=== PATIENT | male | born 1995 | race Caucasian/White ===

== ENCOUNTER 2023-12-18 12:01 | Inpatient (IN) ==
[2023-12-18] MEDS: LIDOCAINE 5% 1 PATCH TD STA (12:56)
[2023-12-18] MEDS: KETOROLAC TROMETHAMINE 60 MG/2 ML VIAL IM STA (12:56)
[2023-12-18] MEDS: CYCLOBENZAPRINE HCL 10 MG TAB PO STA (12:57)
--- NOTE | 2023-12-18 13:32 | XRay Report ---
XR lumbar spine 2-3V CLINICAL HISTORY: back pain, twisting injury COMPARISON STUDY: No previous studies for comparison. FINDINGS: There is straightening of the lumbar lordosis. Vertebral body heights are maintained. There are no lumbar spine fractures. Disc spaces are preserved. Facet joints are intact. IMPRESSION: 1. No lumbar spine fractures. 2. Straightening of the lumbar lordosis. Otherwise, unremarkable lumbar spine radiographs. ACT 112: Negative or not required by law. Electronically signed by: Scottie Mayen M.D. 12/18/2023 1:30 PM
--- NOTE | 2023-12-18 13:34 | XRay Report ---
XR thoracic spine 3V routine HISTORY: 28 years-old Male back pain, twisting injury acute mid back pain status post lifting injury COMPARISON: Lumbar spine radiographs of same day TECHNIQUE: 3 views of the thoracic spine FINDINGS: The imaged lung lees appear clear. No acute fracture, subluxation or significant degenerative hernandes es. IMPRESSION: No acute fracture or subluxation. ACT 112: Negative or not required by law. The above report was generated using voice recognition software. It may contain grammatical, syntax o r spelling errors. Electronically signed by: Mynor Smith M.D. 12/18/2023 1:32 PM
[2023-12-18] MEDS: oxyCODONE HCL IR 5 MG TAB (IMMEDIATE RELEASE) PO STA (14:38)
--- NOTE | 2023-12-18 15:43 | Emergency Department Note ---
ED Provider Note History of Present Illness Chief Complaint: Back Injury/Pain Stated Complaint: TWISTED BACK/WHILE LIFTING, BACK PAIN Time Seen by Provider: 12/18/23 12:36 Source: patient Mode of arrival: ambulatory Limitations: no limitations Patient is a 28-year-old male who presents to the emergency department with complaints of lumbar back pain. Patient states that he was lifting his when he picked her up and twisted he had a sudden onset of severe pain in his lumbar back. Patient states that since that incident he has had no weakness in his bilateral legs, feels like he needs to lift up his legs to get in and out of bed. Patient states that he has had severe back pain that is unrelieved with [id number] pain medications and lidocaine patches at home. Patient denies any other injuries from the incident. Home Medications Medication Instructions Recorded Confirmed Type Fish Oil 1 cap PO QAM 12/18/23 12/18/23 History dextroamphetamine-amphetamine 10 10 mg PO QAM 12/18/23 12/18/23 History mg tablet dextroamphetamine-amphetamine 15 15 mg PO .LUNCHTIME 12/18/23 12/18/23 History mg tablet magnesium glycinate 1 tab PO BID 12/18/23 12/18/23 History cyclobenzaprine 10 mg tablet 10 mg PO TID PRN muscle spasm #15 12/20/23 Rx tabs dexamethasone 6 mg tablet See Taper PO DAILY #8 tabs 12/20/23 Rx gabapentin 100 mg capsule 100 mg PO TID 30 days #90 caps 12/20/23 Rx oxycodone 5 mg tablet 5 mg PO Q4H PRN pain 10 days #30 12/20/23 Rx tabs Allergies Allergy/AdvReac Type Severity Reaction Status Date / Time No Known Allergies Allergy Unverified 12/18/23 15:43 Past Med/Surg History Problem List (Updated 12/19/23 @ 02:58 by Alexandre Hernandez MD) Muscle spasm Lumbar back pain with radiculopathy affecting left lower extremity Herniated nucleus pulposus, L5-S1, right Lumbar radiculopathy (Acute) Strain of lumbar region (Acute) Medical History (Updated 12/19/23 @ 02:58 by Alexandre Hernandez MD) ADHD Social History Smoking Status: Never smoker Second Hand Exposure: No; Do You Dip or Chew Tobacco: No; Hx Alcohol Use: Yes Alcohol type: beer Hx Substance Use: No Preferred Language: Eritrean Communication Ability: Effective Range Mechanic Required: No Beliefs That Will Affect Care: None Current Living Situation: Spouse Other Information That Helps Us Care for You: No Feels Safe at Home: Yes Safety Concerns: Feels Safe At This Time Assistive Devices: None Physical Exam Vital Signs Vital Signs - 24 hr 12/20/23 19:32 12/20/23 19:33 12/21/23 08:00 Temperature 36.7 C 37.7 C H Temperature Source Oral Oral Pulse Rate [Apical] 56 L Pulse Rate [Left Finger] 60 Pulse Rhythm [Apical] Regular Pulse Strength [Apical] Normal Respiratory Rate 18 18 Respiratory Effort / Characteristics Non-Labored Respiratory Depth Normal Respiratory Pattern Regular Blood Pressure [Left Arm] 119/65 120/70 Blood Pressure Mean [Left Arm] 83 86 Blood Pressure Position [Left Arm] Lying Lying Pulse Oximetry 96 100 Oxygen Delivery Method Room Air Room Air EWS Level of Consciousness - Last Result Spontaneously Alert EWS Temperature - Last Result 36.7 EWS Respiratory Rate - Last Result 18 EWS Oxygen Saturation - Last Result 96 EWS Oxygen in Use - Last Result No EWS Score 0 EWS Clinical Risk Low Risk VITAL SIGNS - Vital signs and nursing notes were reviewed. GENERAL -28-year-old male appearing his stated age and in noticeable discomfort throughout the exam. NECK - FROM of the cervical spine. ABDOMEN - Abdominal contour without pulsations or visible masses. BS normoactive all four quadrants. MUSCULOSKELETAL - ROM of the lumbar spine region was limited due to pain. No step-off deformities were palpated down the cervical, thoracic, or lumbar spines. Increased tenderness to Palpation experienced at the level of the lumbar spine and paraspinal muscle distribution. Patient notes the pain wraps around, through his buttocks and down into his left leg as well. NEUROLOGIC - REFLEXES: 3/4 patellar reflexes B/L, +3/4 Achilles reflexes B/L. SENSORY: Spinothalamic tract was found to be intact with ability to discriminate sharp versus dull sensation at the level of hip joint down do the great toe. No sensory defects of the dorsal column were appreciated utilizing light touch for evaluation. CEREBELLAR: Pt able to perform rapid alternating movements of the feet. EXTREMITIES - Range of Motion - No tremors, ticks, or fasciculations of the lower extremities noticed during inspection. FROM of the lower extremities. No clonus noted with PROM of the lower extremities bilaterally. Pt able to perform straight leg raises B/L but with some difficulty due to bilateral weakness. Pt had +4 strength appreciated bilaterally in the lower extremities against examiner's resistance. VASCULAR - Capillary refill of the great toe was brisk. No mottling or blanching of the extremities present. +3/5 dorsalis pedis pulses palpated bilaterally. Course Administered Medications Acetaminophen (Acetaminophen 500 Mg Tab) 1,000 mg PO Q8H [facility] Stop: 01/19/24 11:14 Last Admin: 12/21/23 11:21 Dose: 1,000 mg Documented By: Admin: 12/21/23 04:01 Dose: 1,000 mg Documented By: Admin: 12/20/23 18:20 Dose: 1,000 mg Documented By: Admin: 12/20/23 11:57 Dose: 1,000 mg Documented By: SARAH Amphetamine/Dextroamphetamine (Dextroamphetamine/Amphetamime Ir 5 Mg Tab) 15 mg PO DAILY@1200 [facility] Stop: 01/02/24 11:59 Last Admin: 12/21/23 11:21 Dose: Not Given Documented By: Admin: 12/20/23 09:26 Dose: Not Given Documented By: Admin: 12/19/23 11:27 Dose: Not Given Documented By: ROGELIO Amphetamine/Dextroamphetamine (Dextroamphetamine/Amphetamine Ir 10 Mg Tab) 10 mg PO QAM [facility] Stop: 01/02/24 08:59 Last Admin: 12/21/23 08:49 Dose: Not Given Documented By: Admin: 12/20/23 09:25 Dose: Not Given Documented By: Admin: 12/19/23 09:54 Dose: Not Given Documented By: ROGELIO Cyclobenzaprine HCl (Cyclobenzaprine Hcl 10 Mg Tab) 10 mg PO TID PRN PRN Reason: Muscle Spasm Stop: 01/18/24 08:59 Last Admin: 12/21/23 08:48 Dose: 10 mg Documented By: Admin: 12/20/23 21:06 Dose: 10 mg Documented By: Admin: 12/20/23 14:34 Dose: 10 mg Documented By: Admin: 12/19/23 22:48 Dose: 10 mg Documented By: SVITLANA Gabapentin (Gabapentin 100 Mg Cap) 100 mg PO TID [facility] Stop: 01/18/24 13:59 Last Admin: 12/21/23 13:45 Dose: 100 mg Documented By: Admin: 12/21/23 08:40 Dose: 100 mg Documented By: Admin: 12/20/23 21:06 Dose: 100 mg Documented By: Admin: 12/20/23 14:34 Dose: 100 mg Documented By: Admin: 12/20/23 09:25 Dose: 100 mg Documented By: Admin: 12/19/23 20:43 Dose: 100 mg Documented By: Admin: 12/19/23 13:55 Dose: 100 mg Documented By: SARAH Heparin Sodium (Porcine) (Heparin Sod 5,000 Unit/0.5 Ml Vial) 5,000 units SQ Q12 [facility] Stop: 01/17/24 23:21 Last Admin: 12/21/23 08:48 Dose: 5,000 units Documented By: Admin: 12/21/23 00:25 Dose: 5,000 units Documented By: Admin: 12/20/23 09:25 Dose: Not Given Documented By: Admin: 12/19/23 20:47 Dose: 5,000 units Documented By: Admin: 12/19/23 09:50 Dose: 5,000 units Documented By: Admin: 12/18/23 23:57 Dose: 5,000 units Documented By: SVITLANA Dexamethasone 6 mg/ Syringe 1.5 mls @ 1 mls/min IV Q8H [facility] Stop: 01/18/24 04:59 Last Admin: 12/21/23 13:45 Dose: 1 mls/min Documented By: Admin: 12/21/23 04:01 Dose: 1 mls/min Documented By: Admin: 12/20/23 21:06 Dose: 1 mls/min Documented By: Admin: 12/20/23 14:33 Dose: 1 mls/min Documented By: Admin: 12/20/23 04:07 Dose: 1 mls/min Documented By: Admin: 12/19/23 20:43 Dose: 1 mls/min Documented By: Admin: 12/19/23 13:55 Dose: 1 mls/min Documented By: Admin: 12/19/23 04:27 Dose: 1 mls/min Documented By: SVITLANA Oxycodone HCl (Oxycodone Hcl Ir 5 Mg Tab (Immediate Release)) 10 mg PO Q6H PRN PRN Reason: Pain Stop: 01/01/24 23:21 Last Admin: 12/21/23 11:03 Dose: 10 mg Documented By: Admin: 12/21/23 04:00 Dose: 10 mg Documented By: SVITLANA Discontinued Medications Cyclobenzaprine HCl (Cyclobenzaprine Hcl 10 Mg Tab) 10 mg PO NOW STA Stop: 12/18/23 12:51 Last Admin: 12/18/23 12:57 Dose: 10 mg Documented By: GRACIELA Dexamethasone Sodium Phosphate (DexamethasonePf 10 Mg/Ml Vial) 10 mg IV NOW ONE Stop: 12/18/23 19:35 Last Admin: 12/18/23 19:58 Dose: 10 mg Documented By: ADITI Hydromorphone HCl (Hydromorphone Inj 0.5 Mg/0.5 Ml Syr) 0.5 mg IV Q3H PRN PRN Reason: Severe Pain (Scale 7, 8, 9,10) Stop: 01/01/24 23:21 Last Admin: 12/18/23 23:56 Dose: 0.5 mg Documented By: SVITLANA Ketorolac Tromethamine (Ketorolac Tromethamine 60 Mg/2 Ml Vial) 30 mg IM NOW STA Stop: 12/18/23 12:51 Last Admin: 12/18/23 12:56 Dose: 30 mg Documented By: GRACIELA Lidocaine (Lidocaine 5% 1 Patch) 1 patch TD NOW STA Stop: 12/18/23 12:51 Last Admin: 12/18/23 12:56 Dose: 1 patch Documented By: GRACIELA Miscellaneous (Remove Lidoderm Patch) 1 each N/A DAILY@2100 [facility] Stop: 12/18/23 21:01 Last Admin: 12/18/23 20:02 Dose: Not Given Documented By: ADITI Morphine Sulfate (Morphine Sulfate 4 Mg/Ml 1 Ml Carp\Vial) 4 mg IV NOW STA Stop: 12/18/23 18:50 Last Admin: 12/18/23 19:01 Dose: 4 mg Documented By: LUBA Morphine Sulfate (Morphine Sulfate 4 Mg/Ml 1 Ml Carp\Vial) 4 mg IV Q4 PRN PRN Reason: Pain (6-10) Stop: 01/02/24 00:45 Last Admin: 12/20/23 02:25 Dose: 4 mg Documented By: Admin: 12/19/23 20:08 Dose: 4 mg Documented By: SVITLANA Ondansetron HCl (Ondansetron Inj 2 Mg/Ml 2 Ml Vial) 4 mg IV NOW STA Stop: 12/18/23 18:50 Last Admin: 12/18/23 19:01 Dose: 4 mg Documented By: LUBA Oxycodone HCl (Oxycodone Hcl Ir 5 Mg Tab (Immediate Release)) 10 mg PO NOW STA Stop: 12/18/23 14:22 Last Admin: 12/18/23 14:38 Dose: 10 mg Documented By: GRACIELA Oxycodone HCl (Oxycodone Hcl Ir 5 Mg Tab (Immediate Release)) 5 mg PO Q4H PRN PRN Reason: Moderate Pain (Scale 4, 5, 6) Stop: 01/01/24 23:21 Last Admin: 12/20/23 22:16 Dose: 5 mg Documented By: Admin: 12/20/23 18:20 Dose: 5 mg Documented By: Admin: 12/20/23 14:33 Dose: 5 mg Documented By: Admin: 12/20/23 04:06 Dose: 5 mg Documented By: Admin: 12/19/23 22:48 Dose: 5 mg Documented By: Admin: 12/19/23 18:14 Dose: 5 mg Documented By: Admin: 12/19/23 09:50 Dose: 5 mg Documented By: Admin: 12/19/23 04:32 Dose: 5 mg Documented By: Admin: 12/19/23 00:35 Dose: 5 mg Documented By: SVITLANA Oxycodone HCl (Oxycodone Hcl Ir 5 Mg Tab (Immediate Release)) 5 mg PO NOW STA Stop: 12/20/23 21:06 Last Admin: 12/20/23 21:09 Dose: 5 mg Documented By: SVITLANA Medical Decision Making Differential Diagnosis In the evaluation and treatment of this patient the following differential diagnoses were considered: Cauda equina syndrome, discitis, HNP, sciatica, epidural abscess, psoas abscess, musculoskeletal strain, lumbar fracture, lumbar dislocation, lumbar subluxation, spondylolisthesis, spondylosis, or compression fracture. Medical Records Attestation: I reviewed the patient's medical records. Home Medications was personally reviewed by me Laboratory Data 12/19/23 05:52 12/19/23 05:52 Lab Results 12/18/23 12/18/23 12/19/23 Range/Units 19:03 23:30 05:52 WBC 5.79 6.38 (4.8-10.8) K/ul RBC 5.12 4.98 (4.70-6.10) M/uL Hgb 14.7 14.1 (14.0-18.0) g/dl Hct 43.9 42.6 (42.0-52.0) % MCV 85.7 85.5 (80.0-100.0) fL MCH 28.7 28.3 (25.0-34.0) pg MCHC 33.5 33.1 (32.0-36.0) g/dL RDW Std Deviation 38.2 38.2 (36.4-46.3) fL RDW Coeff of Charlette 12.2 12.3 (11.5-14.5) % Plt Count 262 267 (130-400) K/uL MPV 10.2 10.1 (9.4-12.4) fL Immature Gran % (Auto) 0.2 0.3 % Neut % (Auto) 69.5 88.2 % Lymph % (Auto) 21.8 8.3 % Wilkin % (Auto) 7.1 3.0 % Eos % (Auto) 0.7 0.0 % Baso % (Auto) 0.7 0.2 % Neut # (Auto) 4.03 5.63 (1.40-6.50) K/uL Lymph # (Auto) 1.26 0.53 L (1.20-3.40) K/uL Wilkin # (Auto) 0.41 0.19 (0.11-0.59) K/uL Eos # (Auto) 0.04 0.00 (0.00-0.50) K/uL Baso # (Auto) 0.04 0.01 (0.00-0.20) K/uL Immature Gran # (Auto) 0.01 0.02 (0.01-0.20) K/uL Sodium 140 140 (136-145) mmol/L Potassium 3.7 4.6 D (3.5-5.1) mmol/L Chloride 106 106 (98-107) mmol/L Carbon Dioxide 29 28 (21-32) mmol/L Anion Gap 5 6 (3-11) BUN 16 20 (6-23) mg/dl Creatinine 1.13 1.11 (0.6-1.4) mg/dl Est Cr Clr Drug Dosing Not Reportable 120.6 eGFR 90.23 92.19 BUN/Creatinine Ratio 14.2 18.0 (10-20) Glucose 96 162 H (70-99(Fasting)) mg/dl Calcium 9.4 9.5 (8.6-10.3) mg/dl Phosphorus 3.2 (2.5-4.9) mg/dl Magnesium 1.9 (1.7-2.4) mg/dl Total Bilirubin 0.7 (0.2-1.0) mg/dl AST 19 (13-39) U/L ALT 22 (7-52) U/L Alkaline Phosphatase 46 (34-104) U/L Total Protein 7.1 (6.0-8.3) gm/dl Albumin 4.6 4.4 (3.4-5.0) gm/dl Globulin 2.5 (2.5-4.0) gm/dl Albumin/Globulin Ratio 1.8 (0.9-2) Urine Color Yellow Urine Appearance Clear (Clear) Urine pH 7.5 (4.5-7.5) Ur Specific [place] 1.015 (1.000-1.030) Urine Protein Negative (Negative) Urine Glucose (UA) Negative (Negative) Urine Ketones Negative (Negative) Urine Blood Negative (Negative) Urine Nitrite Negative (Negative) Urine Bilirubin Negative (Negative) Urine Urobilinogen Negative (Negative) Ur Leukocyte Esterase Negative (Negative) Imaging Data Radiologist's Impression: Lumbar Spine X-Ray 12/18/23 12:50 XR lumbar spine 2-3V CLINICAL HISTORY: back pain, twisting injury COMPARISON STUDY: No previous studies for comparison. FINDINGS: There is straightening of the lumbar lordosis. Vertebral body heights are maintained. There are no lumbar spine fractures. Disc spaces are preserved. Facet joints are intact. IMPRESSION: 1. No lumbar spine fractures. 2. Straightening of the lumbar lordosis. Otherwise, unremarkable lumbar spine radiographs. ACT 112: Negative or not required by law. Electronically signed by: Scottie Mayen M.D. 12/18/2023 1:30 PM Thoracic Spine X-Ray 12/18/23 12:50 XR thoracic spine 3V routine HISTORY: 28 years-old Male back pain, twisting injury acute mid back pain status post lifting injury COMPARISON: Lumbar spine radiographs of same day TECHNIQUE: 3 views of the thoracic spine FINDINGS: The imaged lung lees appear clear. No acute fracture, subluxation or significant degenerative changes. IMPRESSION: No acute fracture or subluxation. ACT 112: Negative or not required by law. The above report was generated using voice recognition software. It may contain grammatical, syntax or spelling errors. Electronically signed by: Mynor Smith M.D. 12/18/2023 1:32 PM MDM Narrative Patient is a 28-year-old male who presents to the emergency department with complaints of lumbar back pain. Patient states that he was lifting his when he picked her up and twisted he had a sudden onset of severe pain in his lumbar back. Patient states that since that incident he has had no weakness in his bilateral legs, feels like he needs to lift up his legs to get in and out of bed. Patient states that he has had severe back pain that is unrelieved with [id number] pain medications and lidocaine patches at home. Patient denies any other injuries from the incident. Patient was evaluated by myself and findings are noted in the physical exam above. Patient is having some bilateral leg weakness and difficulty ambulating independently. Patient denies any incontinence of bladder or bowel, and denies any numbness or tingling in his bilateral legs at this time. Patient was ordered an x-ray of his thoracic and lumbar spines as well as a Lidoderm patch, Toradol injection, and Flexeril for his symptoms. Upon reevaluation the patient states that his pain has not improved much and he still feeling significantly weak. I discussed the options of discharge with outpatient follow-up and pain medications and the patient requested to talk about an MRI. The patient is experiencing bilateral leg weakness and feeling like his legs are heavy and he needs to lift his legs up to get in and out of bed. Patient is at baseline a healthy and independently active 28-year-old male who is having difficulty walking due to this pain and weakness that he is experiencing. Patient was ordered an MRI of his lumbar spine as well as oxycodone for his discomfort. Patient had a slight vagal episode from pain with movement to the bed for MRI, patient recovered well and never had a true syncopal episode, but rather felt faint with movement. Patient was able to transfer to the MRI table and complete the MRI. The MRI was interpreted by radiology and no significant abnormalities were found. Patient's symptoms are still likely related to a lumbar strain or lumbar radiculopathy and patient was encouraged to use a short course of steroids and follow up with orthopedic spine. Patient was given care instructions for home and discharged with outpatient follow up information, as well as medications to help with pain. Patient was agreeable to this plan. Patient was deemed appropriate for discharge and discharged in good condition. Impression Strain of lumbar region, Lumbar radiculopathy Discharge Plan Visit Data Chief Complaint: Back Injury/Pain Stated Complaint: TWISTED BACK/WHILE LIFTING, BACK PAIN ED Provider: Bulmaro Murray ED Midlevel Provider: Jimenez Leon Discharge Problem: Strain of lumbar region, Lumbar radiculopathy Patient Disposition: Home - Self-Care Discharge Instructions Interventions: ED Discharge Assessment Last Done: 12/18/23 23:05 Discharge Problem: Strain of lumbar region Qualifiers: Encounter type: initial encounter Qualified Code(s): S39.012A - Strain of muscle, fascia and tendon of lower back, initial encounter
--- NOTE | 2023-12-18 17:13 | Emergency Department Note ---
ED Visit Note Case signed out to me at 5:15 PM on 12/18/2023 this was pending MRI of the L- spine. Results as below. I did assess the patient and no evidence of cauda equina syndrome clinically however the patient does still note significant difficulty in ambulating secondary to back pain. Patellar reflexes/Achilles reflexes within normal limits. No dropfoot. Despite the analgesia received prior to point of signout, the patient continues with significant pain with attempted ambulation. Additional analgesia ordered. At this time noting the patient's ambulatory dysfunction and intractable pain despite medicine, we will proceed with further evaluation and management in the inpatient setting. Hospitalist service consulted. Please refer to further documentation regarding his stay. MR lumbar spine wo con CLINICAL HISTORY: severe back pain since last night, loss of strength in legs, LT leg numbness, Hx herniated discs in lumbar, no injury, PT felt like he was going to pass out after he was brought over from the ED in wheelchair, transferred PT to recliner in Zone 2 immediately when PT stated this, applied ice packs to PT''s forehead and neck and called for ED RN to evaluate PT, PT was then transferred to MRI table in Zone 2 after stating he felt better by 2 MRI techs and 2 ED staff members. INPATIENT TECHNIQUE: An MRI of the lumbar spine was performed without the administration of intravenous contrast. Sequences obtained include sagittal T1-weighted, T2-weighted, STIR (Short Tau Inversion Recovery), and axial T2-weighted sequences. COMPARISON: No previous studies are available for comparison. FINDINGS: Vertebral Alignment: Straightened lumbar lordosis denoting muscle spasm. Normal alignment of the lumbar spine without evidence of fracture or malalignment. No evidence of scoliosis is observed. Vertebral Bodies and Intervertebral Discs: Normal vertebral body height, no fracture identified. No lytic or sclerotic lesions. Normal bone marrow signal intensity. Schmorl's node formation at T12 lower vertebral end plate Reduced height and bright T2 signal intensity of L5-S1 disc denoting its degeneration. [id number] analysis: T12-L1: There is no significant disc pathology. No spinal canal stenosis. No neural foraminal stenosis.No ligamentum flavum hypertrophy and facet joint arthropathy. L1-L2: There is no significant disc pathology. No spinal canal stenosis. No neural foraminal stenosis.No ligamentum flavum hypertrophy and facet joint arthropathy. L2-L3: There is no significant disc pathology. No spinal canal stenosis. No neural foraminal stenosis.No ligamentum flavum hypertrophy and facet joint arthropathy. L3-L4: There is no significant disc pathology. No spinal canal stenosis. No neural foraminal stenosis.No ligamentum flavum hypertrophy and facet joint arthropathy. L4-L5: Minimal posterior annular disc relaxation is seen barely effacing the central epidural fat and not touching the thecal sac. No spinal canal stenosis. No neural foraminal stenosis.No ligamentum flavum hypertrophy and facet joint arthropathy. L5-S1: Posterior central and right paracentral disc herniation with caudal migration and annular tear is seen effacing the ventral epidural fat and indenting the thecal sac, partly in contact with the right S1 nerve root within its lateral recess and encroaching upon te inferior aspect of the right neural exit foramen, subsequent mild to moderate central spinal canal stenosis is noted Spinal Cord and Nerve Roots: Conus medullaris terminates at the L1 level without abnormality. Nerve roots appear unremarkable bilaterally. The lower thoracic spinal cord, conus medullaris, and cauda equina nerve roots are unremarkable. Soft Tissues: Paraspinal soft tissues appear normal without evidence of abnormal signal intensity or mass lesions. IMPRESSION: 1. Straightened lumbar lordosis denoting muscle spasm 2. Degenerated L5-S1: Posterior central and right paracentral disc herniation with caudal migration and annular tear, subsequent neural compromise to the right S1 nerve root and right neural exit foramen as well as mild to moderate spinal canal stenosis .
--- NOTE | 2023-12-18 18:26 | Magnetic Resonance Report ---
EXAM: MR lumbar spine wo con CLINICAL HISTORY: severe back pain since last night, loss of strength in legs, LT leg numbness, Hx herniated discs in lumbar, no injury, PT felt like he was going to pass out after he was brought over from the ED in wheelchair, transferred PT to recliner in Zone 2 immediately when PT stated this, applied ice packs to PT''s forehead and neck and called for ED RN to evaluate PT, PT was then transferred to MRI table in Zone 2 after stating he felt better by 2 MRI techs and 2 ED staff members. INPATIENT TECHNIQUE: An MRI of the lumbar spine was performed without the administration of intravenous contrast. Sequences obtained include sagittal T1-weighted, T2-weighted, STIR (Short Tau Inversion Recovery), and axial T2-weighted sequences. COMPARISON: No previous studies are available for comparison. FINDINGS: Vertebral Alignment: Straightened lumbar lordosis denoting muscle spasm. Normal alignment of the lumbar spine without evidence of fracture or malalignment. No evidence of scoliosis is observed. Vertebral Bodies and Intervertebral Discs: Normal vertebral body height, no fracture identified. No lytic or sclerotic lesions. Normal bone marrow signal intensity. Schmorl's node formation at T12 lower vertebral end plate Reduced height and bright T2 signal intensity of L5-S1 disc denoting its degeneration. [id number] analysis: T12-L1: There is no significant disc pathology. No spinal canal stenosis. No neural foraminal stenosis.No ligamentum flavum hypertrophy and facet joint arthropathy. L1-L2: There is no significant disc pathology. No spinal canal stenosis. No neural foraminal stenosis.No ligamentum flavum hypertrophy and facet joint arthropathy. L2-L3: There is no significant disc pathology. No spinal canal stenosis. No neural foraminal stenosis.No ligamentum flavum hypertrophy and facet joint arthropathy. L3-L4: There is no significant disc pathology. No spinal canal stenosis. No neural foraminal stenosis.No ligamentum flavum hypertrophy and facet joint arthropathy. L4-L5: Minimal posterior annular disc relaxation is seen barely effacing the central epidural fat and not touching the thecal sac. No spinal canal stenosis. No neural foraminal stenosis.No ligamentum flavum hypertrophy and facet joint arthropathy. L5-S1: Posterior central and right paracentral disc herniation with caudal migration and annular tear is seen effacing the ventral epidural fat and indenting the thecal sac, partly in contact with the right S1 nerve root within its lateral recess and encroaching upon te inferior aspect of the right neural exit foramen, subsequent mild to moderate central spinal canal stenosis is noted Spinal Cord and Nerve Roots: Conus medullaris terminates at the L1 level without abnormality. Nerve roots appear unremarkable bilaterally. The lower thoracic spinal cord, conus medullaris, and cauda equina nerve roots are unremarkable. Soft Tissues: Paraspinal soft tissues appear normal without evidence of abnormal signal intensity or mass lesions. IMPRESSION: 1. Straightened lumbar lordosis denoting muscle spasm 2. Degenerated L5-S1: Posterior central and right paracentral disc herniation with caudal migration and annular tear, subsequent neural compromise to the right S1 nerve root and right neural exit foramen as well as mild to moderate spinal canal stenosis Electronically signed by Destiny Jacobs 12-18-2023 6:26 PM
[2023-12-18] MEDS: MoRPHine SULFATE 4 MG/ML 1 ML CARP\\VIAL IV STA (19:01)
[2023-12-18] MEDS: ONDANSETRON INJ 2 MG/ML 2 ML VIAL IV STA (19:01)
[2023-12-18 19:21] LABS: Basophils # (auto) 0.04 K/uL (0.00-0.20); Basophils % (auto) 0.7 %; Eosinophils # (auto) 0.04 K/uL (0.00-0.50); Eosinophils % (auto) 0.7 %; Hematocrit (blood only) 43.9 % (42.0-52.0); Hemoglobin 14.7 g/dl (14.0-18.0); Immature Granulocytes # (auto) 0.01 K/uL (0.01-0.20); Immature Granulocytes % (auto) 0.2 %; Lymphocytes # (auto) 1.26 K/uL (1.20-3.40); Lymphocytes % (auto) 21.8 %; Mean Corpuscular Hemoglobin 28.7 pg (25.0-34.0); Mean Corpuscular Hgb Conc 33.5 g/dL (32.0-36.0); Mean Corpuscular Volume 85.7 fL (80.0-100.0); Mean Platelet Volume 10.2 fL (9.4-12.4); Monocytes # (auto) 0.41 K/uL (0.11-0.59); Monocytes % (auto) 7.1 %; Neutrophils # (auto) 4.03 K/uL (1.40-6.50); Neutrophils % (auto) 69.5 %; Platelet Count 262 K/uL (130-400); RDW Coefficient of Variation 12.2 % (11.5-14.5); RDW Standard Deviation 38.2 fL (36.4-46.3); Red Blood Count 5.12 M/uL (4.70-6.10); White Blood Count 5.79 K/ul (4.8-10.8)
[2023-12-18 19:40] LABS: Alanine Aminotransferase 22 U/L (7-52); Albumin Globulin Ratio 1.8 (0.9-2); Albumin Level 4.6 gm/dl (3.4-5.0); Alkaline Phosphatase 46 U/L (34-104); Anion Gap 5 (3-11); Aspartate Aminotransferase 19 U/L (13-39); BUN Creatinine Ratio 14.2 (10-20); Bilirubin,Total 0.7 mg/dl (0.2-1.0); Blood Urea Nitrogen 16 mg/dl (6-23); Calcium 9.4 mg/dl (8.6-10.3); Carbon Dioxide 29 mmol/L (21-32); Chloride 106 mmol/L (98-107); Globulin 2.5 gm/dl (2.5-4.0); Glucose 96 mg/dl (70-99(Fasting)); Potassium 3.7 mmol/L (3.5-5.1); Sodium 140 mmol/L (136-145); Total Protein 7.1 gm/dl (6.0-8.3)
--- NOTE | 2023-12-18 19:56 | History & Physical Report ---
Date of Service December 18, 2023 Assessment & Plan (1) Herniated nucleus pulposus, L5-S1, right: (2) Lumbar back pain with radiculopathy affecting left lower extremity: (3) Muscle spasm: Plan Right L5-S1 herniated disc- left lower extremity radiculopathy with muscle spasm MRI of lumbar spine: L5-S1 close central and right paracentral disc herniation. Right S1 nerve root compression. Subsequent mild to moderate central spinal canal stenosis is noted Patient with history of previous lumbar spine injury at age 14 From the ED received the following: Dexamethasone 10 mg IV, Toradol 30 mg IM, Flexeril 10 mg p.o., oxycodone 10 mg p.o., and morphine sulfate 4 mg IV Admit on the following: Acetaminophen 650 mg by mouth every 4 hours as needed for mild pain or fever Dexamethasone 6 mg IV every 8 hours Cyclobenzaprine 10 mg p.o. 3 times daily as needed muscle spasm Lidoderm patch, first application now, and then every morning Oxycodone 5 mg p.o. every 4 hours as needed for moderate pain Dilaudid 0.5 mg IV every 3 hours as needed for severe pain Consult orthopedic spine surgery when available History of Present Illness Chief Complaint: The patient presents to the emergency department with acute worsening of chronic low back pain, with new finding of left lower extremity numbness that occurred after bending over to order picker his at home. Primary Care Provider: Dayton Yo DO The patient is a 28-year-old male with a past medical history including chronic low back pain, and ADHD. He initially had problems at the age of 14, when he reportedly had slipped disc at that time. He periodically has had issues with low back pain, but nothing with the intensity and duration of pain. He reports that at about 10 PM on the evening of 12/16, he had bent over to order picker his , and developed immediate worsening of his low back pain, and left lower extremity became numb. He was able to sleep overnight, but then when he woke up this morning the pain was significantly worse. He was trying to take his medication that he had for pain flareups in the past, however, the medication was not as helpful, and he presented to the ED for assessment this evening. Allergies Allergy/AdvReac Type Severity Reaction Status Date / Time No Known Allergies Allergy Unverified 12/18/23 15:43 Home Medications Medication Instructions Recorded Confirmed Type Fish Oil 1 cap PO QAM 12/18/23 12/18/23 History cyclobenzaprine 10 mg tablet 10 mg PO TID PRN muscle spasm #15 12/18/23 Rx tabs dextroamphetamine-amphetamine 10 10 mg PO QAM 12/18/23 12/18/23 History mg tablet dextroamphetamine-amphetamine 15 15 mg PO .LUNCHTIME 12/18/23 12/18/23 History mg tablet lidocaine 5 % topical patch 1 patch topical DAILY #15 ea 12/18/23 Rx (Lidoderm) magnesium glycinate 1 tab PO BID 12/18/23 12/18/23 History methylprednisolone 4 mg tablets in 4 mg PO DIRECTED #21 ea 12/18/23 Rx a dose pack (Medrol (Gregor)) oxycodone 5 mg tablet 5 mg PO Q6H PRN pain #12 tabs 12/18/23 Rx Past Med/Surg History Problem List (Updated 12/19/23 @ 02:58 by Alexandre Hernandez MD) Muscle spasm Lumbar back pain with radiculopathy affecting left lower extremity Herniated nucleus pulposus, L5-S1, right Lumbar radiculopathy (Acute) Strain of lumbar region (Acute) Medical History (Updated 12/19/23 @ 02:58 by Alexandre Hernandez MD) ADHD Social History Smoking Status: Never smoker Second Hand Exposure: No; Do You Dip or Chew Tobacco: No; Hx Alcohol Use: Yes Alcohol type: beer Hx Substance Use: No Preferred Language: Taiwanese Communication Ability: Effective 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 Beliefs That Will Affect Care: None Current Living Situation: Spouse Other Information That Helps Us Care for You: No Feels Safe at Home: Yes Safety Concerns: Feels Safe At This Time Assistive Devices: Contacts and Glasses Review of Systems Review of Systems: The patient denies chest pain, palpitations, shortness of breath, dyspnea on exertion, cough, lower extremity swelling, sore throat, fevers, chills, sweats, weight change, fatigue, nausea, vomiting, diarrhea , constipation, abdominal pain, pelvic pain, blood in urine or stool, dysuria, urinary frequency or urgency, lightheadedness, dizziness, headache, memory loss, loss of consciousness, rash, abnormal bruising or bleeding, focal or generalized weakness, numbness or tingling in arms or right leg, generalized arthralgias or myalgias, neck pain, or night sweats. The review of systems is otherwise negative other than for that already noted above, and at least 10 systems have been reviewed. Physical Exam Physical Exam: The patient is awake, alert and oriented 3, well developed and well nourished, normocephalic and atraumatic, lying in bed and in no acute distress. HEENT--PERRL, EOMI, mucous membranes and oropharynx normal Neck--supple. No JVD. No bruits. Thyroid normal, trachea midline, no adenopathy. Heart--normal S1 and S2. No murmurs, rubs or gallops. Lungs--clear bilaterally, no respiratory distress, no accessory muscle use. Abdomen--normal bowel sounds and soft. Nontender. Nondistended, no hernias or m asses, no organomegaly. Extremities--no cyanosis or clubbing. No edema. There are good distal pulses b/l. Dermatologic--normal skin turgor, normal color, no abnormal lymph nodes, no rash. Neurologic--cranial nerves II through XII grossly intact. Rheumatologic--limited exam of left lower extremity due to aggravation of low back pain Psychiatric--normal affect. Results & Data Results & Data Vital Signs (Past 12 Hours) Vital Signs Temp Pulse Pulse Resp BP BP Pulse Ox 12/18/23 19:08 55 L 12/18/23 16:52 85 12 145/80 H 96 12/18/23 12:14 37 C 99 H 18 143/88 H 98 O2 Del Method 12/18/23 19:08 12/18/23 16:52 Room Air 12/18/23 12:14 Room Air Laboratory Results Laboratory Results WBC 5.79 K/ul (4.8-10.8) 12/18/23 19:03 RBC 5.12 M/uL (4.70-6.10) 12/18/23 19:03 Hgb 14.7 g/dl (14.0-18.0) 12/18/23 19:03 Hct 43.9 % (42.0-52.0) 12/18/23 19:03 MCV 85.7 fL (80.0-100.0) 12/18/23 19:03 MCH 28.7 pg (25.0-34.0) 12/18/23 19:03 MCHC 33.5 g/dL (32.0-36.0) 12/18/23 19:03 RDW Std Deviation 38.2 fL (36.4-46.3) 12/18/23 19:03 RDW Coeff of Charlette 12.2 % (11.5-14.5) 12/18/23 19:03 Plt Count 262 K/uL (130-400) 12/18/23 19:03 MPV 10.2 fL (9.4-12.4) 12/18/23 19:03 Immature Gran % (Auto) 0.2 % 12/18/23 19:03 Neut % (Auto) 69.5 % 12/18/23 19:03 Lymph % (Auto) 21.8 % 12/18/23 19:03 Barron % (Auto) 7.1 % 12/18/23 19:03 Eos % (Auto) 0.7 % 12/18/23 19:03 Baso % (Auto) 0.7 % 12/18/23 19:03 Neut # (Auto) 4.03 K/uL (1.40-6.50) 12/18/23 19:03 Lymph # (Auto) 1.26 K/uL (1.20-3.40) 12/18/23 19:03 Barron # (Auto) 0.41 K/uL (0.11-0.59) 12/18/23 19:03 Eos # (Auto) 0.04 K/uL (0.00-0.50) 12/18/23 19:03 Baso # (Auto) 0.04 K/uL (0.00-0.20) 12/18/23 19:03 Immature Gran # (Auto) 0.01 K/uL (0.01-0.20) 12/18/23 19:03 Sodium 140 mmol/L (136-145) 12/18/23 19:03 Potassium 3.7 mmol/L (3.5-5.1) 12/18/23 19:03 Chloride 106 mmol/L (98-107) 12/18/23 19:03 Carbon Dioxide 29 mmol/L (21-32) 12/18/23 19:03 Anion Gap 5 (3-11) 12/18/23 19:03 BUN 16 mg/dl (6-23) 12/18/23 19:03 Creatinine 1.13 mg/dl (0.6-1.4) 12/18/23 19:03 Est Cr Clr Drug Dosing Not Reportable 12/18/23 19:03 eGFR 90.23 12/18/23 19:03 BUN/Creatinine Ratio 14.2 (10-20) 12/18/23 19:03 Glucose 96 mg/dl (70-99(Fasting)) 12/18/23 19:03 Calcium 9.4 mg/dl (8.6-10.3) 12/18/23 19:03 Total Bilirubin 0.7 mg/dl (0.2-1.0) 12/18/23 19:03 AST 19 U/L (13-39) 12/18/23 19:03 ALT 22 U/L (7-52) 12/18/23 19:03 Alkaline Phosphatase 46 U/L (34-104) 12/18/23 19:03 Total Protein 7.1 gm/dl (6.0-8.3) 12/18/23 19:03 Albumin 4.6 gm/dl (3.4-5.0) 12/18/23 19:03 Globulin 2.5 gm/dl (2.5-4.0) 12/18/23 19:03 Albumin/Globulin Ratio 1.8 (0.9-2) 12/18/23 19:03 Urine Color Yellow 12/18/23 23:30 Urine Appearance Clear (Clear) 12/18/23 23:30 Urine pH 7.5 (4.5-7.5) 12/18/23 23:30 Ur Specific Venus 1.015 (1.000-1.030) 12/18/23 23:30 Urine Protein Negative (Negative) 12/18/23 23:30 Urine Glucose (UA) Negative (Negative) 12/18/23 23:30 Urine Ketones Negative (Negative) 12/18/23 23:30 Urine Blood Negative (Negative) 12/18/23 23:30 Urine Nitrite Negative (Negative) 12/18/23 23:30 Urine Bilirubin Negative (Negative) 12/18/23 23:30 Urine Urobilinogen Negative (Negative) 12/18/23 23:30 Ur Leukocyte Esterase Negative (Negative) 12/18/23 23:30 Impressions Lumbar Spine X-Ray 12/18/23 12:50 XR lumbar spine 2-3V CLINICAL HISTORY: back pain, twisting injury COMPARISON STUDY: No previous studies for comparison. FINDINGS: There is straightening of the lumbar lordosis. Vertebral body heights are maintained. There are no lumbar spine fractures. Disc spaces are preserved. Facet joints are intact. IMPRESSION: 1. No lumbar spine fractures. 2. Straightening of the lumbar lordosis. Otherwise, unremarkable lumbar spine radiographs. ACT 112: Negative or not required by law. Electronically signed by: Scottie Mayen M.D. 12/18/2023 1:30 PM Thoracic Spine X-Ray 12/18/23 12:50 XR thoracic spine 3V routine HISTORY: 28 years-old Male back pain, twisting injury acute mid back pain status post lifting injury COMPARISON: Lumbar spine radiographs of same day TECHNIQUE: 3 views of the thoracic spine FINDINGS: The imaged lung lees appear clear. No acute fracture, subluxation or significant degenerative changes. IMPRESSION: No acute fracture or subluxation. ACT 112: Negative or not required by law. The above report was generated using voice recognition software. It may contain grammatical, syntax or spelling errors. Electronically signed by: Mynor Smith M.D. 12/18/2023 1:32 PM Lumbar Spine MRI 12/18/23 14:18 EXAM: MR lumbar spine wo con CLINICAL HISTORY: severe back pain since last night, loss of strength in legs, LT leg numbness, Hx herniated discs in lumbar, no injury, PT felt like he was going to pass out after he was brought over from the ED in wheelchair, transferred PT to recliner in Zone 2 immediately when PT stated this, applied ice packs to PT''s forehead and neck and called for ED RN to evaluate PT, PT was then transferred to MRI table in Zone 2 after stating he felt better by 2 MRI techs and 2 ED staff members. INPATIENT TECHNIQUE: An MRI of the lumbar spine was performed without the administration of intravenous contrast. Sequences obtained include sagittal T1-weighted, T2-weighted, STIR (Short Tau Inversion Recovery), and axial T2-weighted sequences. COMPARISON: No previous studies are available for comparison. FINDINGS: Vertebral Alignment: Straightened lumbar lordosis denoting muscle spasm. Normal alignment of the lumbar spine without evidence of fracture or malalignment. No evidence of scoliosis is observed. Vertebral Bodies and Intervertebral Discs: Normal vertebral body height, no fracture identified. No lytic or sclerotic lesions. Normal bone marrow signal intensity. Schmorl's node formation at T12 lower vertebral end plate Reduced height and bright T2 signal intensity of L5-S1 disc denoting its degeneration. [id number] analysis: T12-L1: There is no significant disc pathology. No spinal canal stenosis. No neural foraminal stenosis.No ligamentum flavum hypertrophy and facet joint arthropathy. L1-L2: There is no significant disc pathology. No spinal canal stenosis. No neural foraminal stenosis.No ligamentum flavum hypertrophy and facet joint arthropathy. L2-L3: There is no significant disc pathology. No spinal canal stenosis. No neural foraminal stenosis.No ligamentum flavum hypertrophy and facet joint arthropathy. L3-L4: There is no significant disc pathology. No spinal canal stenosis. No neural foraminal stenosis.No ligamentum flavum hypertrophy and facet joint arthropathy. L4-L5: Minimal posterior annular disc relaxation is seen barely effacing the central epidural fat and not touching the thecal sac. No spinal canal stenosis. No neural foraminal stenosis.No ligamentum flavum hypertrophy and facet joint arthropathy. L5-S1: Posterior central and right paracentral disc herniation with caudal migration and annular tear is seen effacing the ventral epidural fat and indenting the thecal sac, partly in contact with the right S1 nerve root within its lateral recess and encroaching upon te inferior aspect of the right neural exit foramen, subsequent mild to moderate central spinal canal stenosis is noted Spinal Cord and Nerve Roots: Conus medullaris terminates at the L1 level without abnormality. Nerve roots appear unremarkable bilaterally. The lower thoracic spinal cord, conus medullaris, and cauda equina nerve roots are unremarkable. Soft Tissues: Paraspinal soft tissues appear normal without evidence of abnormal signal intensity or mass lesions. IMPRESSION: 1. Straightened lumbar lordosis denoting muscle spasm 2. Degenerated L5-S1: Posterior central and right paracentral disc herniation with caudal migration and annular tear, subsequent neural compromise to the right S1 nerve root and right neural exit foramen as well as mild to moderate spinal canal stenosis Electronically signed by Destiny Jacobs 12-18-2023 6:26 PM Code Status & VTE Plan Code Status Full code VTE Prophylaxis Plan VTE Prophylaxis will be ordered: Yes PG Care Time/CCT Total # of Minutes Spent Total Time Spent with Patient: Total time spent is greater than 50% in coordination of care (as documented) at patient's floor/unit and/or counseling patient: Coding Level of Care Code 36784 INT INP/OBS CARE 2/55MIN Diagnoses Herniated nucleus pulposus, L5-S1, right M51.27 Lumbar back pain with radiculopathy affecting left lower extremity M54.16 Muscle spasm M62.838
[2023-12-18] MEDS: dexAMETHasone**PF** 10 MG/ML VIAL IV ONE (19:58)
[2023-12-18] MEDS ORDERED: MAGNESIUM GLYCINATE PO SCH (23:22)
[2023-12-18] MEDS ORDERED: ACETAMINOPHEN 325 MG TAB PO PRN (23:22)
[2023-12-18] MEDS ORDERED: ONDANSETRON INJ 2 MG/ML 2 ML VIAL IV PRN (23:22)
[2023-12-18] MEDS: HYDROmorphone INJ 0.5 MG/0.5 ML SYR IV PRN (23:56)
[2023-12-18] MEDS: HEPARIN SOD 5,000 UNIT/0.5 ML VIAL SQ SCH (23:57)
[2023-12-19 00:04] LABS: Appearance Urine Clear (Clear); Bilirubin Urine Negative (Negative); Blood Urine Negative (Negative); Color Urine Yellow; Glucose Urine UA Negative (Negative); Ketones Urine Negative (Negative); Leukocyte Esterase Urine Negative (Negative); Nitrite Urine Negative (Negative); Protein Urine Negative (Negative); Specific Gravity Urine 1.015 (1.000-1.030); Urobilinogen Urine Negative (Negative); pH Urine 7.5 (4.5-7.5)
[2023-12-19] MEDS: oxyCODONE HCL IR 5 MG TAB (IMMEDIATE RELEASE) PO PRN (00:35)
[2023-12-19] MEDS: dexAMETHasone 6 MG in SYRINGE 0 ML IV SCH (04:27)
[2023-12-19 06:16] LABS: Basophils # (auto) 0.01 K/uL (0.00-0.20); Basophils % (auto) 0.2 %; Hematocrit (blood only) 42.6 % (42.0-52.0); Hemoglobin 14.1 g/dl (14.0-18.0); Immature Granulocytes # (auto) 0.02 K/uL (0.01-0.20); Immature Granulocytes % (auto) 0.3 %; Lymphocytes # (auto) 0.53 K/uL (1.20-3.40); Lymphocytes % (auto) 8.3 %; Mean Corpuscular Hemoglobin 28.3 pg (25.0-34.0); Mean Corpuscular Hgb Conc 33.1 g/dL (32.0-36.0); Mean Corpuscular Volume 85.5 fL (80.0-100.0); Mean Platelet Volume 10.1 fL (9.4-12.4); Monocytes # (auto) 0.19 K/uL (0.11-0.59); Neutrophils # (auto) 5.63 K/uL (1.40-6.50); Neutrophils % (auto) 88.2 %; Platelet Count 267 K/uL (130-400); RDW Coefficient of Variation 12.3 % (11.5-14.5); RDW Standard Deviation 38.2 fL (36.4-46.3); Red Blood Count 4.98 M/uL (4.70-6.10); White Blood Count 6.38 K/ul (4.8-10.8)
[2023-12-19 06:52] LABS: Albumin Level 4.4 gm/dl (3.4-5.0); Calcium 9.5 mg/dl (8.6-10.3); Creatinine Clr Calc Pharmacy 120.6 ml/min; Magnesium 1.9 mg/dl (1.7-2.4); Phosphorus 3.2 mg/dl (2.5-4.9); Potassium 4.6 mmol/L (3.5-5.1)
[2023-12-19] MEDS: DEXTROAMPHETAMINE/AMPHETAMINE IR 10 MG TAB PO SCH (09:50)
[2023-12-19] MEDS: DEXTROAMPHETAMINE/AMPHETAMIME IR 5 MG TAB PO SCH (11:27)
--- NOTE | 2023-12-19 12:31 | Pharmacy Report ---
ED Pharmacist Progress Note - ED Pharmacist Progress Note Date of Service:: December 19, 2023 Notes:: Outpatient RXs cancelled that were sent by ED (oxycodone, Medrol dose pack, lidoderm patch, and cyclobenzaprine) per Jimenez Leon. Called and spoke with Rehana Aquino pharmacist.
[2023-12-19] MEDS: GABAPENTIN 100 MG CAP PO SCH (13:55)
--- NOTE | 2023-12-19 14:53 | Hospitalist Progress Note ---
Date of Service December 19, 2023 Assessment & Plan (1) Herniated nucleus pulposus, L5-S1, right: Plan: Acute in onset of pain after lifting his . Patient with history of previous lumbar spine injury at age 14 MRI of lumbar spine: L5-S1 close central and right paracentral disc herniation. Right S1 nerve root compression. Subsequent mild to moderate central spinal canal stenosis is noted Continue dexamethasone Pain control: as needed Flexeril, lidocaine patch, oxycodone, Dilaudid - add gabapentin 100mg TID with radicular pain no orthospine coverage this weekend however discussed informally with Dr. Villafana and no surgical management treatment, focus on pain control Plan Chronic stable medical conditions: * ADHDcontinue Adderall dispo: Continued inpatient stay for pain control DVT prophy: Heparin Admission and Anticipated Discharge Date Admission Date: December 18, 2023 Supervising Physician Co-Signing Physician Notes Attending Attestation - Chart reviewed, care plan d/w MONICA Segura. I agree w/ the acrter components of her documentation. Michael Roman MD Subjective patient seen lying in bed. States his pain is improved when he is at rest but having significant pain with ambulation. States that he feels like he cannot put full weight on his legs without using a walker because he is significant sharp shooting pains down his legs. Denies any spasm-like pains in his lower back. Good appetite. No fevers or chills Review of Systems Review of Systems: All systems reviewed & are unremarkable except as noted in Subjective Physical Exam Physical Exam: General: NAD, VS as above, lying flat in bed Resp: normal respiratory effort, lungs clear to auscultation CV: RRR, no murmur, Abd: soft, non tender, Extremities: Moves all extremities, able to wiggle toes bilaterally, well- perfused Neuro: A&O x3, Skin: intact, no lesions noted Results & Data Results & Data Vital Signs (Past 12 Hours) Vital Signs Temp Pulse Resp BP Pulse Ox O2 Del Method 12/19/23 07:17 97.7 F 77 14 117/57 L 97 Room Air Laboratory Results CBC, chemistry, UA reviewed Diagnostic Findings lumbar MRI reviewed Thoracic spine x-ray and lumbar spine x-ray reviewed PG Care Time/CCT Total # of Minutes Spent Total Time Spent with Patient: Total time spent is greater than 50% in coordination of care (as documented) at patient's floor/unit and/or counseling patient: Coding Level of Care Code 29222 SUB INP/OBS CARE 235MIN Diagnoses Herniated nucleus pulposus, L5-S1, right M51.27
[2023-12-19] MEDS: MoRPHine SULFATE 4 MG/ML 1 ML CARP\\VIAL IV PRN (20:08)
[2023-12-19] MEDS: CYCLOBENZAPRINE HCL 10 MG TAB PO PRN (22:48)
--- NOTE | 2023-12-20 11:12 | Discharge Summary ---
Discharge Summary Date of Service December 20, 2023 Principal Dx & Hospital Course #1 = Principal Diagnosis (1) Herniated nucleus pulposus, L5-S1, right: Acute in onset of pain after lifting his . Patient with history of previous lumbar spine injury at age 14 MRI of lumbar spine: L5-S1 close central and right paracentral disc herniation. Right S1 nerve root compression. Subsequent mild to moderate central spinal canal stenosis is noted no orthospine coverage this weekend however discussed informally with Dr. Villafana and no surgical management treatment, focus on pain control Pain control regiment at discharge: - Tylenol 1g three times a day - until pain improves, max 2 weeks. - gabapentin 100mg three times a day - Dexamethasone (steroid) taper as prescribed - oxycodone as needed, every 4 hours - Flexeril as needed up to 3 times a day - you can also use heat pad to relieve the pain Plan Chronic stable medical conditions: * ADHDcontinue Adderall dispo: dicharge to home today Admission HPI Per Admitting Provider The patient is a 28-year-old male with a past medical history including chronic low back pain, and ADHD. He initially had problems at the age of 14, when he reportedly had slipped disc at that time. He periodically has had issues with low back pain, but nothing with the intensity and duration of pain. 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 He was able to sleep overnight, but then when he woke up this morning the pain was significantly worse. He was trying to take his medication that he had for pain flareups in the past, however, the medication was not as helpful, and he presented to the ED for assessment this evening. Discharge Exam General: NAD, VS as above, lying flat in bed Resp: normal respiratory effort, lungs clear to auscultation CV: RRR, no murmur, Abd: soft, non tender, Extremities: Moves all extremities, able to wiggle toes bilaterally, well- perfused. preforms straight leg raise without radicular pain Neuro: A&O x3, Skin: intact, no lesions noted Discharge Plan Discharge Items Patient Disposition: Home - Self-Care Reason For Visit: L5-S1 DISC HERNIATION, LLE RADICULOPATHY Discharge Diagnosis: L5-S1 disc herniation Activity: Resume your previous activity Driving/Machine Use: no driving while on narcotic pain medication Weightbearing: Full weightbearing Non-emergency contact: Primary Care Provider Call non-emergency contact if: you have any medication questions, your symptoms worsen, your pain is not controlled and your pain is worsening Follow-up/Referrals: Dayton Yo, [Primary Care Provider] - (follow up within one week ) Diet: Regular Addtl Attending Provider Instructions: Mr. Vanessa, You were hospitalized after acute worsening of your back pain. MRI showed an L5- S1 disc herniation. This requires supportive care and pain control. For pain control recommend the following: - Tylenol 1g three times a day - until pain improves, max 2 weeks. - gabapentin 300mg three times a day - Dexamethasone (steroid) taper as prescribed - oxycodone as needed, every 4 hours - Flexeril as needed up to 3 times a day - you can also use heat pad to relieve the pain -Please follow up with pain management for your joint injection -follow up with Dr. Marin at an appointment to be scheduled. Activity: You can do normal everyday activities as your body allows. Take rest breaks if you feel tired. Do not overexert. Stop activity if you have pain, shortness of breath or feel dizzy. Follow-up appointments: Make an appointment with your primary care physician within one week of discharge. A copy of this summary will be sent to them. Every time you see your primary care physician, or any other doctor, bring your medication list, and a list of questions. CONTACT YOUR PRIMARY CARE PROVIDER if you experience any of the following: Shortness of breath or difficulty breathing Fevers or chills Feeling tired with normal activity or experiencing dizziness or fainting Difficulty following your treatment plan, or difficulty taking medications CALL 911 OR GO TO THE EMERGENCY DEPARTMENT if you experience any of the following: Severe abdominal pain or nausea/vomiting Severe chest pain, or chest pain that radiates (moves) to your jaw or arm Sudden, severe shortness of breath or difficulty breathing Thank you for allowing us to participate in your care. Pending Studies at Discharge: No Stand-Alone Forms: [email or web address], Smoking Cessation Medications and DC Order Prescriptions: New cyclobenzaprine 10 mg Tablet 10 mg PO TID PRN (Reason: muscle spasm) Qty: 15 0RF acetaminophen [Tylenol Extra Strength] 500 mg Tablet 1,000 mg PO Q8H Qty: 30 0RF oxycodone 5 mg Tablet 5 mg PO Q4H PRN (Reason: pain) 10 Days Qty: 30 0RF dexamethasone 6 mg tablet See Taper PO DAILY Qty: 8 0RF Taper: Taper, Blank 6 mg DAILY for 5 Days 3 mg DAILY for 6 Days sennosides-docusate sodium [Senokot-S] 8.6-50 mg Tablet 1 tab PO QAM Qty: 30 0RF gabapentin 300 mg Capsule 300 mg PO TID Qty: 60 0RF Continued dextroamphetamine-amphetamine 10 mg tablet 10 mg PO QAM dextroamphetamine-amphetamine 15 mg tablet 15 mg PO .LUNCHTIME Fish Oil 1 cap PO QAM magnesium glycinate 1 tab PO BID Discharge Orders: Discharge Order (Routine); Ordered 12/23/23 Ordered By: Marsha Contreras/Other Patient Handouts: Back Care Every Day Admission Data Admit Date/Time: 12/21/23 11:49 Attending Provider: Ruslan Walls Admit Provider: Ruslan Walls Primary Care Provider: Dayton Yo Other Providers: Alexandre Hernandez; Bennett Marin; Michael Roman; Mini Sifuentes Other Interventions: Discharge Summary Assessment (RN) Last Done: 12/23/23 11:06 Hospital Stay Data Consultations 12/18/23 19:34 ED Decision to Admit Stat Diagnostic Imagining Performed 12/18/23 14:18 MRI Lumbar Spine [MR lumbar spine wo con] Stat Pending Results Patient Have Any Pending Studies at Discharge: No Discharge Instructions Given to Patient (Per Discharging Provider) Alexander Anne were hospitalized after acute worsening of your back pain. MRI showed an L5- S1 disc herniation. This requires supportive care and pain control. For pain control recommend the following: - Tylenol 1g three times a day - until pain improves, max 2 weeks. - gabapentin 300mg three times a day - Dexamethasone (steroid) taper as prescribed - oxycodone as needed, every 4 hours - Flexeril as needed up to 3 times a day - you can also use heat pad to relieve the pain -Please follow up with pain management for your joint injection -follow up with Dr. Marin at an appointment to be scheduled. Activity: You can do normal everyday activities as your body allows. Take rest breaks if you feel tired. Do not overexert. Stop activity if you have pain, shortness of breath or feel dizzy. Follow-up appointments: Make an appointment with your primary care physician within one week of discharge. A copy of this summary will be sent to them. Every time you see your primary care physician, or any other doctor, bring your medication list, and a list of questions. CONTACT YOUR PRIMARY CARE PROVIDER if you experience any of the following: Shortness of breath or difficulty breathing Fevers or chills Feeling tired with normal activity or experiencing dizziness or fainting Difficulty following your treatment plan, or difficulty taking medications CALL 911 OR GO TO THE EMERGENCY DEPARTMENT if you experience any of the following: Severe abdominal pain or nausea/vomiting Severe chest pain, or chest pain that radiates (moves) to your jaw or arm Sudden, severe shortness of breath or difficulty breathing Thank you for allowing us to participate in your care. Supervising Physician Co-Signing Physician Notes Attending Attestation - Pt seen/examined, chart reviewed, care plan d/w MONICA Segura. I agree w/ the caretr components of her documentation. Patient was NOT discharged on 12/20/23. Please see my separate note dated 12/20/23 for further details. Michael Roman MD Total Time Total Time Spent Total Time Spent (In Minutes): Time spent day of discharge 36 minutes including direct patient care, medication reconciliation, documentation, review of labs and images, and coordination of care. Coding Level of Care Code None Diagnoses Herniated nucleus pulposus, L5-S1, right M51.27
[2023-12-20] MEDS: ACETAMINOPHEN 500 MG TAB PO SCH (11:57)
[2023-12-20] MEDS: oxyCODONE HCL IR 5 MG TAB (IMMEDIATE RELEASE) PO STA (21:09)
[2023-12-21] MEDS: oxyCODONE HCL IR 5 MG TAB (IMMEDIATE RELEASE) PO PRN (04:00)
--- NOTE | 2023-12-21 14:53 | Hospitalist Progress Note ---
Date of Service December 21, 2023 Assessment & Plan (1) Herniated nucleus pulposus, L5-S1, right: Plan: Acute in onset of pain after lifting his . Patient with history of previous lumbar spine injury at age 14 MRI of lumbar spine: L5-S1 close central and right paracentral disc herniation. Right S1 nerve root compression. Subsequent mild to moderate central spinal canal stenosis is noted PT consulted, patient unable to attempt stairs due to not being able to ambulate w/o walker. orthospine consulted, appreciate recommendations. Pain control regimen - Tylenol 1g three times a day - until pain improves, max 2 weeks. - gabapentin 100mg three times a day - Dexamethasone - oxycodone as needed, every 4 hours - Flexeril as needed up to 3 times a day - heat pad to relieve the pain Plan Chronic stable medical conditions: * ADHDcontinue Adderall dispo: continued inpatient stay pending pain control and improvement in ambulation. Admission and Anticipated Discharge Date Admission Date: December 21, 2023 Subjective Patient seen and examined this morning. patient unable to walk w/o a walker at this time. patient reports pain 4/10 in lower back. patient states he lives in two story home with only restroom on 2nd floor. Patient agreeable to PT consult. Physical Exam Constitutional: WD/WN, vitals as above Respiratory: breathing unlabored Cardiovascular: well perfused Psychiatric: A+Ox3, euthymic affect Results & Data Results & Data Vital Signs (Past 12 Hours) Vital Signs Temp Pulse Resp BP Pulse Ox O2 Del Method 12/21/23 12:31 37.7 C H 68 18 136/68 99 Room Air 12/21/23 08:00 37.7 C H 56 L 18 120/70 100 Room Air PG Care Time/CCT Total # of Minutes Spent Total Time Spent with Patient: Total time spent is greater than 50% in coordination of care (as documented) at patient's floor/unit and/or counseling patient: Coding Level of Care Code 00617 SUB INP/OBS CARE 2/35MIN Diagnoses Herniated nucleus pulposus, L5-S1, right M51.27
--- NOTE | 2023-12-22 11:51 | Orthopedic Consultation ---
Date of Service December 22, 2023 History of Present Illness Reason for Consultation: Low back and left leg pain. Requesting Physician: . Attending Physician: Ruslan Walls 28-year-old male who presents to the emergency department on 12/17 with complaints of lumbar back pain and left leg pain. Patient states that he was lifting his when he picked her up and twisted he had a sudden onset of severe pain in his lumbar back, no weakness in his bilateral legs, pain in left leg. Pain in lumbosacral region then radiates to posterior thigh and lower leg, at times to little toe. No right leg symptoms. Patient denies any other injuries from the incident, though states that he had some type of disc herniation at age of 14. Currently on today the , he notes the low back pain is improved to a limited degree when lying down, he still has pain in the back and lower leg when he tries to do any significant ambulation. Exam reveals the patient to have appropriate strength for EHL, ankle plantar and dorsi flexion knee extension flexion and also hip flexion. He does have a positive straight leg raise on the left but not on the right, pain indicated in the midline lumbosacral junction. MRI of the lumbar spine was performed 12/18/23 without the administration of intravenous contrast. Sequences obtained include sagittal T1-weighted, T2- weighted, STIR (Short Tau Inversion Recovery), and axial T2-weighted sequences. FINDINGS: Straightened lumbar lordosis denoting muscle spasm. Normal alignment of the lumbar spine without evidence of fracture or malalignment. Vertebral Bodies and Intervertebral Discs: Normal vertebral body height, no fracture identified. No lytic or sclerotic lesions. Normal bone marrow signal intensity. Schmorl's node formation at T12 lower vertebral end plate Reduced height and bright T2 signal intensity of L5-S1 disc denoting its degeneration. T12-L1: There is no significant disc pathology. No spinal canal stenosis. No neural foraminal stenosis.No ligamentum flavum hypertrophy and facet joint arthropathy. L1-L2: There is no significant disc pathology. No spinal canal stenosis. No neur al foraminal stenosis.No ligamentum flavum hypertrophy and facet joint arthropathy. L2-L3: There is no significant disc pathology. No spinal canal stenosis. No neural foraminal stenosis.No ligamentum flavum hypertrophy and facet joint arthropathy. L3-L4: There is no significant disc pathology. No spinal canal stenosis. No neural foraminal stenosis.No ligamentum flavum hypertrophy and facet joint arthropathy. L4-L5: Minimal posterior annular disc relaxation is seen barely effacing the central epidural fat and not touching the thecal sac. No spinal canal stenosis. No neural foraminal stenosis.No ligamentum flavum hypertrophy and facet joint arthropathy. L5-S1: Posterior central and right paracentral disc herniation with caudal migration and annular tear is seen effacing the ventral epidural fat and indenting the thecal sac, partly in contact with the right S1 nerve root within its lateral recess and encroaching upon te inferior aspect of the right neural exit foramen, subsequent mild to moderate central spinal canal stenosis is noted. Soft Tissues: Paraspinal soft tissues appear normal without evidence of abnormal signal intensity or mass lesions. IMPRESSION: 1. Straightened lumbar lordosis denoting muscle spasm 2. Degenerated L5-S1: Posterior central and right paracentral disc herniation with caudal migration and annular tear, subsequent neural compromise to the ri ght S1 nerve root and right neural exit foramen as well as mild to moderate spinal canal stenosis Review of MRI images from December 18, 2023 at [facility], this is my separate interpretation, this reveals the L4-5 disc and above to be unremarkable. L5-S1 disc has a slight loss of height, there is loss of signal intensity and notes of broad-based disc bulge/herniation more notable on the right than on the left with some limited contact of the right S1 nerve root. No significant central or foraminal resultant stenosis. Impression: L5-S1 lumbar broad-based disc bulge/herniation with primarily midline axial symptomatology and left leg radicular symptoms. Plan: I reviewed the MRI image findings with the patient, and at this time I would recommend conservative measures with continued appropriate medications, but also consultation with pain management. I related to the patient that the disc protrusion is not what I would consider severe enough that I would recommend surgical intervention at this time, I think there is a very good chance that he will improve with epidural injection at the L5-S1 level or perhaps a left S1 transforaminal. Continue with mobilization and appropriate medication management. Allergies Allergy/AdvReac Type Severity Reaction Status Date / Time No Known Allergies Allergy Unverified 12/18/23 15:43 Home Medications Medication Instructions Recorded Confirmed Type Fish Oil 1 cap PO QAM 12/18/23 12/18/23 History dextroamphetamine-amphetamine 10 10 mg PO QAM 12/18/23 12/18/23 History mg tablet dextroamphetamine-amphetamine 15 15 mg PO .LUNCHTIME 12/18/23 12/18/23 History mg tablet magnesium glycinate 1 tab PO BID 12/18/23 12/18/23 History cyclobenzaprine 10 mg tablet 10 mg PO TID PRN muscle spasm #15 12/20/23 Rx tabs dexamethasone 6 mg tablet See Taper PO DAILY #8 tabs 12/20/23 Rx gabapentin 100 mg capsule 100 mg PO TID 30 days #90 caps 12/20/23 Rx oxycodone 5 mg tablet 5 mg PO Q4H PRN pain 10 days #30 12/20/23 Rx tabs Past Med/Surg History Problem List (Updated 12/19/23 @ 02:58 by Alexandre Hernandez MD) Muscle spasm Lumbar back pain with radiculopathy affecting left lower extremity Herniated nucleus pulposus, L5-S1, right Lumbar radiculopathy (Acute) Strain of lumbar region (Acute) Medical History (Updated 12/19/23 @ 02:58 by Alexandre Hernandez MD) ADHD Social History Smoking Status: Never smoker Second Hand Exposure: No; Do You Dip or Chew Tobacco: No; Hx Alcohol Use: Yes Alcohol type: beer Hx Substance Use: No Preferred Language: Romanian Communication Ability: Effective Teacher Citizenship Required: No Beliefs That Will Affect Care: None Current Living Situation: Spouse Other Information That Helps Us Care for You: No Feels Safe at Home: Yes Safety Concerns: Feels Safe At This Time Assistive Devices: None Review of Systems All systems reviewed & are unremarkable except as noted in HPI & below. Physical Exam . Results & Data Results & Data Laboratory Results . Diagnostic Findings . PG Care Time/CCT Total # of Minutes Spent Total Time Spent with Patient: Total time spent is greater than 50% in coordination of care (as documented) at patient's floor/unit and/or counseling patient: Coding Level of Care Code 92633 IN/OBS CONSULT LVL 3,45M
--- NOTE | 2023-12-22 14:36 | Pain Management Consultation ---
Date of Consultation December 22, 2023 Assessment & Plan (1) Herniated nucleus pulposus, L5-S1, right: (2) Lumbar back pain with radiculopathy affecting left lower extremity: (3) Muscle spasm: Plan 1. We discussed the patient's MRI results in detail and how disc herniations cause lumbar radiculopathy. I agree with Dr. Marin that conservative measures would be appropriate at this time. Recommend L5-S1 interlaminar epidural steroid injection. We discussed the risk, benefits, expectations and he agrees to proceed. Will coordinate with insurance as to the timing of this procedure. 2. Recommend increasing gabapentin to 300 mg p.o. 3 times daily. 3. Patient reports he has not moved his bowels in the last 4 days thus ordered Senokot today. 4. Recommend course of physical therapy postdischarge. 5. Thank you for this consultation we will coordinate with the hospitalist timing of injection. History of Present Illness Attending Physician: Ruslan Walls History of Present Illness 28-year-old male with longstanding history of axial low back pain and ADHD. He reports issues with pain over his axial lumbar spine at age 14 and then again 3 years ago. He reports that with stretching and rest these episodes resolved. However on the evening of 12/16 he picked up his and felt immediate sharp shooting pain then numbness over his left lower extremity and worsening of his typical low back pain. He reports that since that time the numbness over his left lower extremity has resolved but now has sharp shooting electric intermittent radicular symptoms. Pain ranges between 6-8 out of 10 currently 6 out of 10. Pain escalates with activity and is better at rest. He reports interference with sleep secondary to pain. He reports pain is 80% axial L4-S1 to 20% left lower extremity radicular symptoms. He denies symptoms in his right lower extremity. He denies bowel or bladder incontinence, motor weakness, foot drop, fever, chills, night sweats, saddle anesthesia. He reports that he would be able to ambulate but only with assistance of a walker secondary to pain. During this hospitalization he has been utilizing gabapentin 100 mg p.o. 3 times daily, Flexeril, IV Decadron, oxycodone with modest benefit. He has been evaluated by physical therapy and given some baseline exercises which he has been participating in. He is interested in pursuing interventional pain management. He was evaluated by Dr. Marin who deferred surgical intervention at this time and recommended pain management evaluation. Pain Assessment Pain scale - at its best (0-10): 6 Pain scale - at its worst (0-10): 8 Allergies Allergy/AdvReac Type Severity Reaction Status Date / Time No Known Allergies Allergy Unverified 12/18/23 15:43 Home Medications Medication Instructions Recorded Confirmed Type Fish Oil 1 cap PO QAM 12/18/23 12/18/23 History dextroamphetamine-amphetamine 10 10 mg PO QAM 12/18/23 12/18/23 History mg tablet dextroamphetamine-amphetamine 15 15 mg PO .LUNCHTIME 12/18/23 12/18/23 History mg tablet magnesium glycinate 1 tab PO BID 12/18/23 12/18/23 History cyclobenzaprine 10 mg tablet 10 mg PO TID PRN muscle spasm #15 12/20/23 Rx tabs dexamethasone 6 mg tablet See Taper PO DAILY #8 tabs 12/20/23 Rx gabapentin 100 mg capsule 100 mg PO TID 30 days #90 caps 12/20/23 Rx oxycodone 5 mg tablet 5 mg PO Q4H PRN pain 10 days #30 12/20/23 Rx tabs Pain History Pain Location Full Body Front + Back: 2 1. 2. Pain Intensity [facility] Combined Pain Scale: 6-Mod to Severe - Significant limitations of ADLs. Hard to do anything Pain scale - at its best (0-10): 6 Pain scale - at its worst (0-10): 8 Patient History Medical History ADHD Social History Smoking Status: Never smoker Second Hand Exposure: No; Do You Dip or Chew Tobacco: No; Hx Alcohol Use: Yes Alcohol type: beer Hx Substance Use: No Preferred Language: Korean Communication Ability: Effective Assessment Rn Required: No Beliefs That Will Affect Care: None Current Living Situation: Spouse Other Information That Helps Us Care for You: No Feels Safe at Home: Yes Safety Concerns: Feels Safe At This Time Assistive Devices: None Physical Exam 2 Physical Exam: Constitutional: Well-developed, well-nourished, healthy-appearing, normal weight Psych: Awake, alert, and oriented 3 with normal affect and mood. Recent memory appears grossly intact Eyes: Pupils are equally round and reactive to light with normal size pupils, eyelids appear normal Ear, nose, mouth, and throat: Moist nasal and oral membranes, lips and tongues appear normal, no external ear abnormalities are noted Neck: The trachea is midline without deviation and no thyromegaly is noted Respiratory: Normal respiratory effort without distress, no audible wheezes or rhonchi CV: Normal S1 and S2, 2+DP pulses Chest: Deferred GI/abdomen: Non-tender without guarding, no masses noted review Musculoskeletal: Head is normocephalic and atraumatic, gait is within normal limits Cervical: Lordotic curve: Normal Range of motion is normal with extension, flexion, side-bending, rotation Strength: Strength is equal bilaterally with 5 out of 5 strength in all planes Sensation of upper extremities: Intact bilaterally Lumbar: Lordotic curve: Normal Range of motion is decreased in all planes secondary to pain Tenderness: Exquisitely tender over the axial midline bilaterally L4-S1 Facet provocation: Negative bilaterally Straight leg raise: Positive bilaterally Step-off injuries: None Strength: Strength is equal bilaterally with 5 out of 5 strength in all planes Sensation of lower extremities: Intact bilaterally Deep tendon reflexes: Rated at 1+ in bilateral L4 and S1 Myofascial spasm: Marked right sided lumbar paraspinal spasm. A few discrete trigger points noted Greater trochanters: Nontender bilaterally Sacroiliac joints: Nontender bilaterally Pathologic reflexes noted: None Skin: No rashes, lesions, ulcers, or induration noted Neuro: No nystagmus noted, the tongue is midline, the patient is able to rotate their head bilaterally : Deferred Results (Pain Clinic) Diagnostic Review MRI: non enhanced, reports reviewed, images reviewed and findings discussed with patient MRI Findings: 12/18/23 MR lumbar spine wo con CLINICAL HISTORY: severe back pain since last night, loss of strength in legs, LT leg numbness, Hx herniated discs in lumbar, no injury, PT felt like he was going to pass out after he was brought over from the ED in wheelchair, transferred PT to recliner in Zone 2 immediately when PT stated this, applied ice packs to PT''s forehead and neck and called for ED RN to evaluate PT, PT was then transferred to MRI table in Zone 2 after stating he felt better by 2 MRI techs and 2 ED staff members. INPATIENT TECHNIQUE: An MRI of the lumbar spine was performed without the administration of intravenous contrast. Sequences obtained include sagittal T1-weighted, T2-weighted, STIR (Short Tau Inversion Recovery), and axial T2-weighted sequences. COMPARISON: No previous studies are available for comparison. FINDINGS: Vertebral Alignment: Straightened lumbar lordosis denoting muscle spasm. Normal alignment of the lumbar spine without evidence of fracture or malalignment. No evidence of scoliosis is observed. Vertebral Bodies and Intervertebral Discs: Normal vertebral body height, no fracture identified. No lytic or sclerotic lesions. Normal bone marrow signal intensity. Schmorl's node formation at T12 lower vertebral end plate Reduced height and bright T2 signal intensity of L5-S1 disc denoting its degeneration. [id number]-[id number]-ceygm analysis: T12-L1: There is no significant disc pathology. No spinal canal stenosis. No neural foraminal stenosis.No ligamentum flavum hypertrophy and facet joint arthropathy. L1-L2: There is no significant disc pathology. No spinal canal stenosis. No neural foraminal stenosis.No ligamentum flavum hypertrophy and facet joint arthropathy. L2-L3: There is no significant disc pathology. No spinal canal stenosis. No neural foraminal stenosis.No ligamentum flavum hypertrophy and facet joint arthropathy. L3-L4: There is no significant disc pathology. No spinal canal stenosis. No neural foraminal stenosis.No ligamentum flavum hypertrophy and facet joint arthropathy. L4-L5: Minimal posterior annular disc relaxation is seen barely effacing the central epidural fat and not touching the thecal sac. No spinal canal stenosis. No neural foraminal stenosis.No ligamentum flavum hypertrophy and facet joint arthropathy. L5-S1: Posterior central and right paracentral disc herniation with caudal migration and annular tear is seen effacing the ventral epidural fat and indenting the thecal sac, partly in contact with the right S1 nerve root within its lateral recess and encroaching upon te inferior aspect of the right neural exit foramen, subsequent mild to moderate central spinal canal stenosis is noted Spinal Cord and Nerve Roots: Conus medullaris terminates at the L1 level without abnormality. Nerve roots appear unremarkable bilaterally. The lower thoracic spinal cord, conus medullaris, and cauda equina nerve roots are unremarkable. Soft Tissues: Paraspinal soft tissues appear normal without evidence of abnormal signal intensity or mass lesions. IMPRESSION: 1. Straightened lumbar lordosis denoting muscle spasm 2. Degenerated L5-S1: Posterior central and right paracentral disc herniation with caudal migration and annular tear, subsequent neural compromise to the right S1 nerve root and right neural exit foramen as well as mild to moderate spinal canal stenosis
[2023-12-22] MEDS: LIDOCAINE 5% 1 PATCH TD SCH (15:21)
--- NOTE | 2023-12-22 15:31 | Hospitalist Progress Note ---
Date of Service December 22, 2023 Assessment & Plan (1) Herniated nucleus pulposus, L5-S1, right: Plan: Acute in onset of pain after lifting his . Patient with history of previous lumbar spine injury at age 14 MRI of lumbar spine: L5-S1 close central and right paracentral disc herniation. Right S1 nerve root compression. Subsequent mild to moderate central spinal canal stenosis is noted PT consulted, patient unable to attempt stairs due to not being able to ambulate w/o walker. ortho spine consult reviewed 12/21 recommend conservative measures recommended case management pain management consult reviewed 12/21 recommended increasing gabapentin to 300mg TID L5-S1 interlaminar epidural steroid injection, timing TBD. added senokot for constipation Pain control regimen - Tylenol 1g three times a day - until pain improves, max 2 weeks. - gabapentin 300mg three times a day - Dexamethasone - oxycodone as needed, every 4 hours - Flexeril as needed up to 3 times a day - heat pad to relieve the pain Plan Chronic stable medical conditions: * ADHDcontinue Adderall dispo: continued inpatient stay pending pain control and improvement in ambulation. Admission and Anticipated Discharge Date Admission Date: December 21, 2023 Subjective patient seen and examined this morning. patient reports low back pain. denies any additional complaints. Physical Exam Constitutional: WD/WN, vitals as above Eyes: PERRL, conjunctivae normal, anicteric sclerae Respiratory: breathing unlabored Cardiovascular: well perfused Psychiatric: A+Ox3, euthymic affect Results & Data Results & Data Vital Signs (Past 12 Hours) Vital Signs Temp Pulse Resp BP Pulse Ox O2 Del Method 12/22/23 07:01 37.5 C 62 16 123/72 97 Room Air PG Care Time/CCT Total # of Minutes Spent Total Time Spent with Patient: Total time spent is greater than 50% in coordination of care (as documented) at patient's floor/unit and/or counseling patient: Coding Level of Care Code 44259 SUB INP/OBS CARE 2/35MIN Diagnoses Herniated nucleus pulposus, L5-S1, right M51.27
[2023-12-22] MEDS: DOCUSATE SODIUM/SENNA 50/8.6MG TAB PO SCH (16:01)
[2023-12-22 20:03] VITALS: RESP 16; O2SAT 96
[2023-12-22] MEDS: GABAPENTIN 300 MG CAP PO SCH (20:19)
[2023-12-23 08:13] VITALS: BP 118/64; PULSE 69
[2023-12-23 08:18] VITALS: TEMP 97.9
--- NOTE | 2023-12-23 10:58 | Discharge Summary ---
Discharge Summary Date of Service December 23, 2023 Principal Dx & Hospital Course #1 = Principal Diagnosis (1) Herniated nucleus pulposus, L5-S1, right: Acute in onset of pain after lifting his . Patient with history of previous lumbar spine injury at age 14 MRI of lumbar spine: L5-S1 close central and right paracentral disc herniation. Right S1 nerve root compression. Subsequent mild to moderate central spinal canal stenosis is noted PT consulted, patient able to walk 10 stairs prior to discharge (12/21). ortho spine consult reviewed 12/21 recommend conservative measures spoke with Dr. Marin via phone 12/22 - recommending outpatient injection as surgery may worsen his pain in long run. Discussed imaging in detail as well. Patient expresses pain on left side of his back but imaging suggests herniation is on right side. Also recommended to encourage ambulation. pain management consult reviewed 12/21 recommended increasing gabapentin to 300mg TID L5-S1 interlaminar epidural steroid injection, 12/22 at outpatient office added Senokot for constipation - continue on discharge if constipation persists. Pain control regimen - Tylenol 1g three times a day - until pain improves, max 2 weeks. - gabapentin 300mg three times a day - Dexamethasone - oxycodone as needed, every 4 hours - Flexeril as needed up to 3 times a day - heat pad to relieve the pain Plan Chronic stable medical conditions: * ADHDcontinue Adderall Discussed with in detail via phone 12/22. Admission HPI Per Admitting Provider The patient is a 28-year-old male with a past medical history including chronic low back pain, and ADHD. He initially had problems at the age of 14, when he reportedly had slipped disc at that time. He periodically has had issues with low back pain, but nothing with the intensity and duration of pain. 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 He was able to sleep overnight, but then when he woke up this morning the pain was significantly worse. He was trying to take his medication that he had for pain flareups in the past, however, the medication was not as helpful, and he presented to the ED for assessment this evening. Discharge Exam Constitutional WD/WN, vitals as above Eyes PERRL, conjunctivae normal, anicteric sclerae Psychiatric A+Ox3, euthymic affect Discharge Plan Discharge Items Patient Disposition: Home - Self-Care Reason For Visit: L5-S1 DISC HERNIATION, LLE RADICULOPATHY Discharge Diagnosis: L5-S1 disc herniation Activity: Resume your previous activity Driving/Machine Use: no driving while on narcotic pain medication Weightbearing: Full weightbearing Non-emergency contact: Primary Care Provider Call non-emergency contact if: you have any medication questions, your symptoms worsen, your pain is not controlled and your pain is worsening Follow-up/Referrals: Dayton Yo, [Primary Care Provider] - (follow up within one week ) Diet: Regular Addtl Attending Provider Instructions: Mr. Vanessa, You were hospitalized after acute worsening of your back pain. MRI showed an L5- S1 disc herniation. This requires supportive care and pain control. For pain control recommend the following: - Tylenol 1g three times a day - until pain improves, max 2 weeks. - gabapentin 300mg three times a day - Dexamethasone (steroid) taper as prescribed - oxycodone as needed, every 4 hours - Flexeril as needed up to 3 times a day - you can also use heat pad to relieve the pain -Please follow up with pain management for your joint injection -follow up with Dr. Marin at an appointment to be scheduled. Activity: You can do normal everyday activities as your body allows. Take rest breaks if you feel tired. Do not overexert. Stop activity if you have pain, shortness of breath or feel dizzy. Follow-up appointments: Make an appointment with your primary care physician within one week of discharge. A copy of this summary will be sent to them. Every time you see your primary care physician, or any other doctor, bring your medication list, and a list of questions. CONTACT YOUR PRIMARY CARE PROVIDER if you experience any of the following: Shortness of breath or difficulty breathing Fevers or chills Feeling tired with normal activity or experiencing dizziness or fainting Difficulty following your treatment plan, or difficulty taking medications CALL 911 OR GO TO THE EMERGENCY DEPARTMENT if you experience any of the following: Severe abdominal pain or nausea/vomiting Severe chest pain, or chest pain that radiates (moves) to your jaw or arm Sudden, severe shortness of breath or difficulty breathing Thank you for allowing us to participate in your care. Pending Studies at Discharge: No Stand-Alone Forms: My [facility], Smoking Cessation Medications and DC Order Prescriptions: New cyclobenzaprine 10 mg Tablet 10 mg PO TID PRN (Reason: muscle spasm) Qty: 15 0RF acetaminophen [Tylenol Extra Strength] 500 mg Tablet 1,000 mg PO Q8H Qty: 30 0RF oxycodone 5 mg Tablet 5 mg PO Q4H PRN (Reason: pain) 10 Days Qty: 30 0RF dexamethasone 6 mg tablet See Taper PO DAILY Qty: 8 0RF Taper: Taper, Blank 6 mg DAILY for 5 Days 3 mg DAILY for 6 Days sennosides-docusate sodium [Senokot-S] 8.6-50 mg Tablet 1 tab PO QAM Qty: 30 0RF gabapentin 300 mg Capsule 300 mg PO TID Qty: 60 0RF Continued dextroamphetamine-amphetamine 10 mg tablet 10 mg PO QAM dextroamphetamine-amphetamine 15 mg tablet 15 mg PO .LUNCHTIME Fish Oil 1 cap PO QAM magnesium glycinate 1 tab PO BID Discharge Orders: Discharge Order (Routine); Ordered 12/23/23 Ordered By: Marsha Contreras/Other Patient Handouts: Back Care Every Day Admission Data Admit Date/Time: 12/21/23 11:49 Attending Provider: Ruslan Walls Admit Provider: Ruslan Walls Primary Care Provider: Dayton Yo Other Providers: Alexandre Hernandez; Bennett Marin; Ed Paul Other Interventions: Discharge Summary Assessment (RN) Last Done: 12/23/23 11:06 Hospital Stay Data Consultations 12/18/23 19:34 ED Decision to Admit Stat 12/21/23 11:49 Consult Orthopedic Spine Surgery Routine 12/22/23 12:01 Consult Pain Management Routine 12/23/23 10:10 Consult Patient Services Routine Diagnostic Imagining Performed 12/18/23 14:18 MRI Lumbar Spine [MR lumbar spine wo con] Stat Pending Results Patient Have Any Pending Studies at Discharge: No Discharge Instructions Given to Patient (Per Discharging Provider) Mr. Vanessa, Alexander were hospitalized after acute worsening of your back pain. MRI showed an L5- S1 disc herniation. This requires supportive care and pain control. For pain control recommend the following: - Tylenol 1g three times a day - until pain improves, max 2 weeks. - gabapentin 300mg three times a day - Dexamethasone (steroid) taper as prescribed - oxycodone as needed, every 4 hours - Flexeril as needed up to 3 times a day - you can also use heat pad to relieve the pain -Please follow up with pain management for your joint injection -follow up with Dr. Marin at an appointment to be scheduled. Activity: You can do normal everyday activities as your body allows. Take rest breaks if you feel tired. Do not overexert. Stop activity if you have pain, shortness of breath or feel dizzy. Follow-up appointments: Make an appointment with your primary care physician within one week of discharge. A copy of this summary will be sent to them. Every time you see your primary care physician, or any other doctor, bring your medication list, and a list of questions. CONTACT YOUR PRIMARY CARE PROVIDER if you experience any of the following: Shortness of breath or difficulty breathing Fevers or chills Feeling tired with normal activity or experiencing dizziness or fainting Difficulty following your treatment plan, or difficulty taking medications CALL 911 OR GO TO THE EMERGENCY DEPARTMENT if you experience any of the following: Severe abdominal pain or nausea/vomiting Severe chest pain, or chest pain that radiates (moves) to your jaw or arm Sudden, severe shortness of breath or difficulty breathing Thank you for allowing us to participate in your care. Total Time Total Time Spent Total Time Spent (In Minutes): 60 Total Time Includes: Examination of the Patient, Discharge Planning, Medication Reconciliation and Communication With Other Providers Coding Level of Care Code 10273 INP/OBS DISCH >30 MIN Diagnoses Herniated nucleus pulposus, L5-S1, right M51.27
--- NOTE | 2023-12-25 12:50 | Hospitalist Progress Note ---
Date of Service December 20, 2023 (progress note - late entry) Assessment & Plan (1) Herniated nucleus pulposus, L5-S1, right: Plan: Acute in onset of pain after lifting his . Patient with history of previous lumbar spine injury at age 14 MRI of lumbar spine: L5-S1 close central and right paracentral disc herniation. Right S1 nerve root compression. Subsequent mild to moderate central spinal canal stenosis is noted Patient with ongoing pain in the low back and LLE with resulting ambulatory dysfunction/difficulty Remains on the following - * Tylenol 1g TID * gabapentin 100mg TID * Dexamethasone 6mg IV TID * Pain meds prn * flexeril prn Despite the above he is using a walker to ambulate and even with such is having a very hard time This is concerning given his young age, etc. Plan to NOT d/c home and have ortho-spine see in consult formally tomorrow Strongly consider pain management consultation as well - may be a candidate for steroid injection Plan Chronic stable medical conditions: * ADHDcontinue Adderall Admission and Anticipated Discharge Date Admission Date: December 21, 2023 Subjective patient continues to have severe back pain with left leg pain when he ambulates he has a hard time placing weight on his left leg the left leg pain travels all the way down to the left foot he is using a walker to ambulate around the room & in the hallway denies any right leg pain at the moment denies urinary incontinence denies bowel incontinence Review of Systems 2 Review of Systems: GI - no abd pain or N/V Physical Exam 2 Physical Exam: gen - NAD, resting in bed comfortably heart - RRR, s1 s2, no murmur lungs - CTA b/l abd - soft NT ND BS+ ext - no edema, pulses 2+ b/l neuro - strength 5/5 hip flexion b/l; knee extension b/l 5/5; no foot drop b/l; ankle dorsiflexion/plantarflexion 5/5; muscle bulk normal b/l legs Results & Data Results & Data Vital Signs (Past 12 Hours) Laboratory Results labs 12/19/23 - CBC, BMP wnl (glucose elevated at 162) PG Care Time/CCT Total # of Minutes Spent Total Time Spent with Patient: Total time spent is greater than 50% in coordination of care (as documented) at patient's floor/unit and/or counseling patient: Coding Level of Care Code 13663 SUB INP/OBS CARE 03/05MIN Diagnoses Herniated nucleus pulposus, L5-S1, right M51.27
== END 2023-12-23 14:30 | disposition home or self-care (01) | DRG 552 ==
LOC: EDINP 12:01 → ED 12:01 → SUATTDRO 19:56 → 3E 23:05